=== PATIENT | male | born 1965 | race Caucasian/White ===

== ENCOUNTER 2017-03-27 12:37 | Observation (INO) | payer MEDICARE, OTHER ==
[~2017-03-27] VITALS: Ht 180.3 cm; Wt 104.1 kg
[~2017-03-27 12:37] MED LIST: CILO100T PO; DEXAMETHASONE SOD PHOS 4 MG/ML VIAL IV ONE; DICL1CAP4 PO; FAMO20TA2 PO; FISHCAP4 PO; GABA300C3 PO; LIDOCAINE HCL 1% PF 5 ML AMPULE OTHER ONE; LORTA5 PO; MIDAZOLAM HCL 2 MG/2 ML VIAL IV ONE; MULTTAB67 PO; ONDANSETRON HCL 4 MG/2 ML VIAL IV PUSH ONE; OXYB10TA PO; PERC10TA27 PO; PHENYLEPH/NS 1000 MCG/10 ML SYR IV ONE; SIMV40TA PO; SODIUM CHLORIDE 0.9% 10 ML VIAL IV FLUSH ONE; ePHEDrine/NS 25 MG/5 ML SYR IV ONE
[2017-03-27 12:48] VITALS: BP 160/86; PULSE 90; RESP 18; TEMP 98.2; O2SAT 98
--- NOTE | 2017-03-27 14:50 | PD ---
HPI Chief Complaint: Weaver Hand Problem Time Seen by Provider: 12:52 Travel History International Travel<30 days: No Contact w/Intl Traveler<30days: No Traveled to known affect area: No History of Present Illness HPI 52 YO M presents to the ED via EMS for evaluation of penile pain and swelling. The patient states that he placed his wedding ring around his penis for sexual pleasure ~3 hours ago and has not been able to remove it at home. The patient endorses history of lower extremity weakness 2/2 chronic back issues, including spondylolisthesis. Last meal or drink "last night." PFSH Past Medical History Arthritis: Yes Blood Disorders: No Anxiety: No Depression: No Heart Rhythm Problems: Yes Cancer: No Cardiovascular Problems: No High Cholesterol: Yes Diabetes: No Diminished Hearing: No Endocrine: No Gastrointestinal Disorders: No Genitourinary: No Hepatitis: No Hiatal Hernia: No Immune Disorder: No Musculoskeletal: No Neurologic: No Psychiatric: No Reproductive: No Respiratory: Yes Immunizations Current: Yes Thyroid Disease: No Past Surgical History Abdominal Surgery: No AICD: No Arteriovenous Shunt: No Body Medical Devices: SCREWS BACK Cardiac Surgery: No Ear Surgery: No Endocrine Surgery: No Genitourinary Surgery: No Gynecologic Surgery: No Insulin Pump: No Joint Replacement: No Neurologic Surgery: Yes (DISCECTOMY) Oral Surgery: No Pacemaker: No Thoracic Surgery: No Other Surgery: Yes (LEFT KNEE AND LEFT RING FINGER 1988/KNEE 2002) Social History Alcohol Use: No Tobacco Use: No Substance Use: No Allergies-Medications (Allergen,Severity, Reaction): Coded Allergies: No Known Allergies (Verified , 06/19/16) Reported Meds & Prescriptions Reported Meds & Active Scripts Active Hydrocodone/Acetaminophen 5 mg/325 mg 1 Tab 1 Tab PO Q6H PRN Reported Fish Oil + D3 (Fish Oil-Cholecalciferol) 1,200-1,000 Mg-Unit Cap 1 Cap PO DAILY Multiple Vitamin 1 Tab 1 Tab PO DAILY Cilostazol 100 Mg Tab 100 Mg PO BID Percocet (Oxycodone-Acetaminophen) 10-325 mg Tab 1 Tab PO Q4H PRN Oxybutynin ER 24 HR (Oxybutynin Chloride) 10 Mg Tab 10 Mg PO DAILY Zorvolex (Diclofenac) 35 Mg Cap 75 Mg PO BID [id number] M1 20 Mg Tab 20 Mg PO DAILY Simvastatin 40 Mg Tab 40 Mg PO HS Gabapentin 300 Mg Cap 600 Mg PO TID Review of Systems Except as stated in HPI: all other systems reviewed are Neg Physical Exam Narrative GENERAL: Well-nourished, well-developed obese white male in no acute distress. SKIN: Focused skin assessment warm/dry. HEAD: Normocephalic. EYES: No scleral icterus. No injection or drainage. NECK: Supple, trachea midline. No JVD or lymphadenopathy. CARDIOVASCULAR: Regular rate and rhythm without murmurs, gallops, or rubs. RESPIRATORY: Breath sounds clear and equal bilaterally. No accessory muscle use. GASTROINTESTINAL: Abdomen soft, non-tender, nondistended. GENITOURINARY: Circumcised. Testes descended bilaterally without evidence of rotation. No lesions or erythema. No urethral discharge. There is a metal band at the base of the penis causing a tourniquet effect, distally to this there is edema, hematoma. MUSCULOSKELETAL: No cyanosis, or edema. BLE weakness, patients states this is his baseline. BACK: Nontender without obvious deformity. No CVA tenderness. Data Data Last Documented VS Vital Signs Date Time Temp Pulse Resp B/P (MAP) Pulse Ox O2 Delivery O2 Flow Rate FiO2 03/27/17 12:59 81 18 Room Air 03/27/17 12:48 98.2 160/86 (110) 98 Orders Orders ^ Wire Cutters (03/27/17 12:53) Abdomen, Kub Only (03/27/17 13:34) Cath, [place] Med Ea (03/27/17 13:34) NPO (03/27/17 15:45) Complete Blood Count With Diff (03/27/17 15:45) Comprehensive Metabolic Panel (03/27/17 15:45) Urinalysis - C+S If Indicated (03/27/17 15:45) Chest, Single Ap (03/27/17 ) Electrocardiogram (03/27/17 ) Admit Order (Ed Use Only) (03/27/17 16:08) Labs Laboratory Tests Test 03/27/17 16:00 White Blood Count 11.4 TH/MM3 Red Blood Count 4.53 MIL/MM3 Hemoglobin 12.0 GM/DL Hematocrit 36.8 % Mean Corpuscular Volume 81.3 FL Mean Corpuscular Hemoglobin 26.5 PG Mean Corpuscular Hemoglobin Concent 32.6 % Red Cell Distribution Width 14.6 % Platelet Count 386 TH/MM3 Mean Platelet Volume 7.5 FL Neutrophils (%) (Auto) 78.4 % Lymphocytes (%) (Auto) 10.6 % Monocytes (%) (Auto) 9.4 % Eosinophils (%) (Auto) 1.3 % Basophils (%) (Auto) 0.3 % Neutrophils # (Auto) 8.9 TH/MM3 Lymphocytes # (Auto) 1.2 TH/MM3 Monocytes # (Auto) 1.1 TH/MM3 Eosinophils # (Auto) 0.2 TH/MM3 Basophils # (Auto) 0.0 TH/MM3 CBC Comment DIFF FINAL Differential Comment Urine Color YELLOW Urine Turbidity CLEAR Urine pH 8.0 Urine Specific [place] 1.009 Urine Protein TRACE mg/dL Urine Glucose (UA) NEG mg/dL Urine Ketones NEG mg/dL Urine Occult Blood LARGE Urine Nitrite NEG Urine Bilirubin NEG Urine Urobilinogen LESS THAN 2.0 MG/DL Urine Leukocyte Esterase TRACE Urine RBC /hpf Urine WBC 6 /hpf Urine Mucus FEW /lpf Microscopic Urinalysis Comment CULT NOT INDICATED Blood Urea Nitrogen 12 MG/DL Creatinine 1.27 MG/DL Random Glucose 89 MG/DL Total Protein 7.4 GM/DL Albumin 3.4 GM/DL Calcium Level 9.2 MG/DL Alkaline Phosphatase 146 U/L Aspartate Amino Transf (AST/SGOT) 27 U/L Alanine Aminotransferase (ALT/SGPT) 43 U/L Total Bilirubin 0.4 MG/DL Sodium Level 142 MEQ/L Potassium Level 4.0 MEQ/L Chloride Level 109 MEQ/L Carbon Dioxide Level 26.5 MEQ/L Anion Gap 7 MEQ/L Estimat Glomerular Filtration Rate 59 ML/MIN MDM Medical Decision Making Medical Screen Exam Complete: Yes Emergency Medical Condition: Yes Interpretation(s) EKG: Rate 70, sinus rhythm. Normal intervals. Normal axis. No acute ST changes. Reviewed by Dr. Petty Differential Diagnosis Hematoma versus vascular injury versus retained foreign body versus UTI versus other Narrative Course 52 YO M presents to the ED via EMS for evaluation of penile pain and swelling. The patient states that he placed his wedding ring around his penis for sexual pleasure ~3 hours ago and has not been able to remove it at home. The patient endorses history of lower extremity weakness 2/2 chronic back issues, including spondylolisthesis. Last meal or drink "last night." Vitals reviewed. On physical exam there is a ring treating a tourniquet effect around the base of the penis. I used the ring cutting device to remove the ring. Immediately afterward the patient began to urinate. I offered him a urinal and he casually stated "I have a catheter stuck inside my bladder." Patient states that he attempted to self catheter after he was unable to remove the ring in an effort to "empty my bladder and reduce the swelling." He states that the end of the device "popped off" and the catheter retracted into his bladder. On exam I can feel the device in the penile urethra, approximately 3-1/2 cm from the meatus. Due to the urethral edema I was unable to maneuver the device to the meatus for removal. KUB x-ray reveals urinary catheter coiled in the bladder. I spoke with Dr. Meza, who will take the patient to surgery today. Please see his note for disposition. Procedures Procedure Narrative RING REMOVAL: a small amount of lubricating jelly was used to place the guard under the ring. The ring cutting device was used to transect the ring in a vertical fashion. This did not release the tourniquet effect and a second cut was made through the body of the ring. The ring was easily removed. Physical exam reveals no laceration or injury to the skin. Patient tolerated the procedure well. Tonia Medley Mar 27, 2017 14:50
--- NOTE | 2017-03-27 15:09 | RADRPT ---
EXAM DATE/TIME: 03/27/2017 14:54 [facility] COMPARISON: No previous studies available for comparison. INDICATIONS : Possible foreign body. MEDICAL HISTORY : pt states that he is paralyzed SURGICAL HISTORY : lumbar spine surgery. ENCOUNTER: Initial ACUITY: 1 day PAIN SCORE: 0/10 LOCATION: Bilateral abdomen FINDINGS: Supine view of the abdomen was performed. The abdominal bowel gas pattern is normal. No abnormal ma sses, calcifications, or organomegaly is seen. The osseous structures reveal trans-peduncular screws and vertical bars in place bilaterally L2-L3 CONCLUSION: Lumbar surgery. Benign abdomen. Negative for radiopaque foreign body Larry Balbuena MD on March 27, 2017 at 15:06 Board Certified Radiologist. This report was verified electronically.
[2017-03-27 16:12] VITALS: BP 155/82; PULSE 78; RESP 18; O2SAT 98
--- NOTE | 2017-03-27 16:21 | RADRPT ---
EXAM DATE/TIME: 03/27/2017 15:52 [facility] COMPARISON: No previous studies available for comparison. INDICATIONS : Evaluate for pneumonia, pneumothorax or communicable disease. Pre-op cystoscopy. MEDICAL HISTORY : None. SURGICAL HISTORY : None. ENCOUNTER: Initial ACUITY: 1 day PAIN SCORE: 0/10 LOCATION: Bilateral chest FINDINGS: A single view of the chest demonstrates the lungs to be symmetrically aerated without evidence of mas s, infiltrate or effusion. The cardiomediastinal contours are unremarkable. Osseous structures are intact anterior cervical fusion plate in place. CONCLUSION: No acute disease. Larry Balbuena MD on March 27, 2017 at 16:20 Board Certified Radiologist. This report was verified electronically.
[2017-03-27 16:29] LABS: AUTOMATED NEUTROPHIL # 8.9 TH/MM3 (1.8-7.7); BASOPHIL % 0.3 % (0.0-2.0); EOSINOPHIL # 0.2 TH/MM3 (0-0.4); EOSINOPHIL % 1.3 % (0.0-4.0); HEMATOCRIT 36.8 % (39.0-51.0); HEMO FLAGS DIFF FINAL; LYMPH % 10.6 % (9.0-44.0); LYMPHOCYTE # 1.2 TH/MM3 (1.0-4.8); MEAN CELL VOLUME 81.3 FL (80.0-100.0); MEAN CORPUSCULAR HEMOGLOBIN 26.5 PG (27.0-34.0); MEAN CORPUSCULAR HGB CONC 32.6 % (32.0-36.0); MONO % 9.4 % (0.0-8.0); NEUT % 78.4 % (16.0-70.0); PLATELET COUNT 386 TH/MM3 (150-450); RED BLOOD COUNT 4.53 MIL/MM3 (4.50-5.90); RED CELL DISTRIBUTION WIDTH 14.6 % (11.6-17.2); WHITE BLOOD COUNT 11.4 TH/MM3 (4.0-11.0)
[2017-03-27 16:39] LABS: BLOOD, URINE LARGE (NEG); COMMENT (UR) CULT NOT INDICATED; CULTURE IF INDICATED CULT NOT INDICATED; GLUCOSE,URINE NEG (NEG); KETONE, URINE NEG (NEG); MUCUS URINE FEW /lpf (OCC); NITRITE,URINE NEG (NEG); URINE COLOR YELLOW (YELLW/STRAW)
[2017-03-27 16:55] LABS: ALT (GPT) 43 U/L (12-78); ANION GAP 7 MEQ/L (5-15); AST (GOT) 27 U/L (15-37); BICARBONATE 26.5 MEQ/L (21.0-32.0); BLOOD UREA NITROGEN 12 MG/DL (7-18); CHLORIDE 109 MEQ/L (98-107); GLOMERULAR FILTRATION RATE 59 ML/MIN (>89); SODIUM (NA) 142 MEQ/L (136-145)
[2017-03-27 16:57] LABS: ALKALINE PHOSPHATASE 146 U/L (45-117); TOTAL BILIRUBIN ADULT 0.4 MG/DL (0.2-1.0)
[2017-03-27] MEDS ORDERED: ceFAZolin INJ 1,000 MG VIAL IV ONE (18:00)
[2017-03-27] MEDS ORDERED: ceFAZolin INJ 1,000 MG VIAL ONE (18:01)
--- NOTE | 2017-03-27 18:03 | PD ---
Data Data Last Documented VS Vital Signs Date Time Temp Pulse Resp B/P (MAP) Pulse Ox O2 Delivery O2 Flow Rate FiO2 03/27/17 12:59 81 18 Room Air 03/27/17 12:48 98.2 160/86 (110) 98 Orders Orders ^ Wire Cutters (03/27/17 12:53) Abdomen, Kub Only (03/27/17 13:34) Cath, [place] Med Ea (03/27/17 13:34) NPO (03/27/17 15:45) Complete Blood Count With Diff (03/27/17 15:45) Comprehensive Metabolic Panel (03/27/17 15:45) Urinalysis - C+S If Indicated (03/27/17 15:45) Chest, Single Ap (03/27/17 ) Electrocardiogram (03/27/17 ) Admit Order (Ed Use Only) (03/27/17 16:08) Labs Laboratory Tests Test 03/27/17 16:00 White Blood Count 11.4 TH/MM3 Red Blood Count 4.53 MIL/MM3 Hemoglobin 12.0 GM/DL Hematocrit 36.8 % Mean Corpuscular Volume 81.3 FL Mean Corpuscular Hemoglobin 26.5 PG Mean Corpuscular Hemoglobin Concent 32.6 % Red Cell Distribution Width 14.6 % Platelet Count 386 TH/MM3 Mean Platelet Volume 7.5 FL Neutrophils (%) (Auto) 78.4 % Lymphocytes (%) (Auto) 10.6 % Monocytes (%) (Auto) 9.4 % Eosinophils (%) (Auto) 1.3 % Basophils (%) (Auto) 0.3 % Neutrophils # (Auto) 8.9 TH/MM3 Lymphocytes # (Auto) 1.2 TH/MM3 Monocytes # (Auto) 1.1 TH/MM3 Eosinophils # (Auto) 0.2 TH/MM3 Basophils # (Auto) 0.0 TH/MM3 CBC Comment DIFF FINAL Differential Comment Urine Color YELLOW Urine Turbidity CLEAR Urine pH 8.0 Urine Specific [place] 1.009 Urine Protein TRACE mg/dL Urine Glucose (UA) NEG mg/dL Urine Ketones NEG mg/dL Urine Occult Blood LARGE Urine Nitrite NEG Urine Bilirubin NEG Urine Urobilinogen LESS THAN 2.0 MG/DL Urine Leukocyte Esterase TRACE Urine RBC /hpf Urine WBC 6 /hpf Urine Mucus FEW /lpf Microscopic Urinalysis Comment CULT NOT INDICATED Blood Urea Nitrogen 12 MG/DL Creatinine 1.27 MG/DL Random Glucose 89 MG/DL Total Protein 7.4 GM/DL Albumin 3.4 GM/DL Calcium Level 9.2 MG/DL Alkaline Phosphatase 146 U/L Aspartate Amino Transf (AST/SGOT) 27 U/L Alanine Aminotransferase (ALT/SGPT) 43 U/L Total Bilirubin 0.4 MG/DL Sodium Level 142 MEQ/L Potassium Level 4.0 MEQ/L Chloride Level 109 MEQ/L Carbon Dioxide Level 26.5 MEQ/L Anion Gap 7 MEQ/L Estimat Glomerular Filtration Rate 59 ML/MIN MDM Supervised Visit with CHELA: Yes Narrative Course The history, exam, and medical decision-making in the associated midlevel provider note were completed with my assistance. I reviewed and agree with the findings presented. I attest that I had a [id number] encounter with the patient on the same day, and personally performed and documented my assessment and findings in the medical record. *My assessment and Findings: This is a 52-year-old male who presents to the emergency department with a wedding ring entrapped around his penis. The physician field administrative assistant was able to remove the ring however the penis did remain edematous. Patient later informed us that he had a catheter inside his penis. We were able to visualize this on x-ray. Urology was consulted for removal. Patient was taken to same day surgery. Kalee Petty MD Mar 27, 2017 18:03
[2017-03-27] MEDS ORDERED: DO NOT ADM ANY ANTICOAGULANT DRUGS PRN (18:30)
--- NOTE | 2017-03-27 18:51 | MB ---
cc: AL NAVARRETE MD DATE OF CONSULTATION: 03/27/2017. REASON FOR CONSULTATION: 1. Foreign object in the bladder. 2. Penile swelling. 3. History of benign prostate hypertrophy with chronic urinary retention. HISTORY OF PRESENT ILLNESS: The patient is a 52-year-old male with a history of benign prostate hypertrophy with incomplete emptying of his bladder who managed it with clean intermittent catheterization who presented to the emergency room for evaluation of the penile swelling. The patient states that he initially placed his had not been able to remove it at home. He also stated that he catheterizes himself intermittently due to incomplete emptying of his bladder, which he was told was from back issues. He states he read something on the internet where if you cut the catheter, you can insert it further into your bladder. He did that earlier today and the catheter retracted up into his bladder. While in the emergency room, the emergency room physician was able to remove the ring. The patient is a patient of Dr. Perales who helps manage his bladder issues. He denies history of kidney stones or any blood in his urine but he does get frequent infections. He denies flank pain, abdominal pain, nausea or vomiting, fevers at this time. PAST MEDICAL HISTORY: His past medical history is significant for: 1. Benign prostate hypertrophy. 2. Atrial fibrillation. 3. High cholesterol. 4. Recurrent urinary tract infections. 5. COPD. PAST SURGICAL HISTORY: 1. Discectomy. SOCIAL HISTORY: Denies smoking, alcohol or illicit drug use. ALLERGIES: NO KNOWN DRUG ALLERGIES. FAMILY HISTORY Denies family history of prostate or urolithiasis. MEDICATIONS: Home medications include: 1. Percocet. 2. Oxybutynin. 3. Famotidine. 4. Simvastatin. 5. Gabapentin. REVIEW OF SYSTEMS: See the history of present illness, otherwise all systems reviewed and otherwise negative. PHYSICAL EXAMINATION: VITAL SIGNS: Temperature 98.2, pulse 70, respiratory rate 18, blood pressure 155/82 and satting 98% on room air. GENERAL: He is alert and oriented times three and in no apparent distress. He is a pleasant and cooperative gentleman who appears his stated age. HEAD: Normocephalic and atraumatic. EYES: No scleral icterus. Extraocular muscles intact. NECK: The neck is supple. Trachea is midline. No jugular venous distention. LUNGS: Clear to auscultation bilaterally. No wheezes, rales or rhonchi. HEART: Regular rate and rhythm. No murmurs, rubs or gallops. ABDOMEN: The abdomen is soft, nontender and nondistended. Positive bowel sounds. GENITOURINARY: His penis is edematous but nontender. No evidence of any lacerations. Testes are descended bilaterally and normal in size and consistency without mass. RECTAL: Defer to the procedure. EXTREMITIES: Nontender. No cyanosis, clubbing or edema. PSYCHIATRIC: Normal affect. NEUROLOGIC: Cranial nerves II through XII are intact. 5/5 all four extremities. SKIN: No ulcers or rashes. [place] and moist. LABS: White count 11.4, hemoglobin 12.0, hematocrit 36.8, platelet count 386,000. Sodium 142, potassium 4.0, chloride 109, bicarbonate 26.5, creatinine 1.27, BUN 12. His urine showed large blood, trace of leukocyte esterase. IMAGING STUDIES: He had an abdominal x-ray performed which was negative for any pathology. ASSESSMENT AND PLAN: The patient is a 52-year-old male with history of benign prostate hypertrophy with chronic urinary retention who presented with penile swelling secondary to a wedding ring stuck on his penis which was subsequently removed and a foreign object in his bladder. PLAN: 1. Keep the patient NPO. 2. Will take him to the cystoscopy suite for examination under anesthesia and removal of the foreign body from his urethra. I discussed with the patient that he will likely wake up with a catheter in place and can then be discharged in the morning as long as his bladder and urethra appear atraumatic. He can then follow up with Dr. Perales as an outpatient. I discussed the risks, benefits, and alternatives with the patient including the risks of anesthesia as well as the risks of bladder injury, urethral injury, urethral strictures, need for additional procedures, among others. He understood these risks. All questions were answered and he elected to proceed. Al Navarrete MD EMMichelle/MACIEJ /5:43 PM /6:30 PM
[2017-03-27] MEDS ORDERED: *MEPERIDINE 25 MG INJ VIAL PERIprocedural Use ONLY ONE (18:58)
--- NOTE | 2017-03-27 19:55 | MP ---
cc: AL MEZA MD DATE OF SURGERY: 03/27/2017 PREOPERATIVE DIAGNOSIS: Foreign object in bladder. POSTOPERATIVE DIAGNOSIS: Foreign object in bladder. PROCEDURE PERFORMED: 1. Cystourethroscopy 2. Removal of foreign object. SURGEON: Al Meza MD ANESTHESIA: General. COMPLICATIONS: None. PREOPERATIVE ANTIBIOTICS: Ancef 2 grams IV. DRAINS: 16 [place] Grady catheter. SPECIMENS: None. BLOOD LOSS: 0. DISPOSITION: Stable to recovery. INDICATIONS: The patient a 52-year-old male with a history BPH with chronic urinary retention who does clean intermittent catheterization about four times a day presented to the ER earlier today after he cut the catheter and it retracted up into his bladder. He also had significant swelling secondary to a wedding ring that he had placed around his penis. The wedding ring was able to be removed in the ER. However, due to the catheter retracting up into his bladder he was then setup for cystoscopy and exam under anesthesia and removal of foreign object body. After the risks and benefits as well as alternatives were explained to the patient, the patient wished to proceed and informed consent was obtained. DETAILS OF THE PROCEDURE The patient was properly identified, brought back to the cystoscopy suite and was laid supine on the cystoscopy table. Appropriate timeout was performed. Under the direction of anesthesiology, the patient was intubated and induced under general aesthetic. Preoperative antibiotics in the form of Ancef 2 grams IV were given within one hour of the start of the procedure. The patient was then placed in dorsolithotomy position, prepped and draped in normal sterile surgical fashion. A rigid cystoscope was carefully passed into his urethra where along his penile urethra I came across the clear catheter. Alligator grasping forceps used to remove this catheter in its entirety. I then advanced the cystoscope into the patient's bladder. The bladder was carefully examined. There was no evidence of any bladder tumor, stones or diverticula. The bladder was 3+ trabeculated. There was no foreign object on the bladder floor. Both the orifices were identified and appeared in normal anatomic location. The scope was removed into his prostate and it had a significant median lobe and trilobar hyperplasia, approximately 4 cm long. The scope was then removed. A 16 [place] Grady catheter was inserted in a sterile technique, clear yellow urine returned. This completed the procedure. The patient was extubated and sent to Recovery in stable condition. He will be transferred to the floor and observed overnight with instructions to remove the catheter in the morning and resume clean intermittent catheterization and followup with Dr. Perales next week. MD NANCY Villa/KILO /6:15 PM /7:21 PM
[2017-03-27 20:25] VITALS: BP 130/77; PULSE 76; RESP 18; TEMP 96.7; O2SAT 96
[2017-03-28] VITALS: BP 113/68; PULSE 72; RESP 20; TEMP 97.3; O2SAT 95
[2017-03-28 04:00] VITALS: BP 137/88; PULSE 83; RESP 20; TEMP 98.5; O2SAT 96
[2017-03-28 08:00] VITALS: BP 142/85; PULSE 84; RESP 18; TEMP 98.1; O2SAT 96
--- NOTE | 2017-03-28 16:18 | EKG ---
Date Performed: 03/27/2017 Time Performed: 16:19:00 PTAGE: 52 years EKG: Sinus rhythm NORMAL ECG INTERPRETATION BASED ON A DEFAULT AGE OF 40 YEARS Compared to prior tracing no significan t change PREVIOUS TRACING 02/08/2013 @ 06.37.54 DOCTOR: Carlos Mercer Interpretating Date/Time 03/28/2017 16:17:02
== END 2017-03-28 12:50 | disposition home or self-care (01) ==
LOC: NEPC 12:37 → NEDA 16:09 → N06A 20:18
PROVIDERS: ADMIT Urology; ATTEND Urology
DX: T19.1XXA Foreign body in bladder, initial encounter (principal); N40.1 Benign prostatic hyperplasia with lower urinary tract symptoms; R33.8 Other retention of urine; R53.1 Weakness; M43.10 Spondylolisthesis, site unspecified; R60.9 Edema, unspecified; I48.91 Unspecified atrial fibrillation; E78.00 Pure hypercholesterolemia, unspecified; J44.9 Chronic obstructive pulmonary disease, unspecified; Z87.440 Personal history of urinary (tract) infections
CPT/HCPCS: 00910; 52310; 71010; 74000; 80053; 81001; 85025; 93005; 99285; G0378; J0690; J1100; J2175; J2250; J2370; J2405; J3010